=== PATIENT | female | born 1990 | race Caucasian/White ===

== ENCOUNTER → 2017-06-28 | Outpatient (CLI) | payer OTHER, MEDICAID ==
[~2017-06-28] MED LIST: BACL10TA PO; MELO-170 PO; POLY17PO6 PO
--- NOTE | 2017-06-28 10:41 | Diagnostic Imaging Report ---
INDICATION: survey. TECHNIQUE: Multiple Real-time grayscale images were obtained over the gravid uterus. COMPARISON: None. FINDINGS: There is a single live fetus in a cephalic presentation. The placenta is anterior. The amniotic fluid volume appears normal. The heart rate was recorded at 155 BPM. The survey demonstrates the kidneys and stomach to be unremarkable. The bladder was not well seen. The intra-cranial structures are unremarkable. There is a four-chamber heart. The three-vessel cord and cord insertion are unremarkable. The spine is unremarkable. Biometrical measurements are as follows: Biparietal 4.8 cm, age 20 weeks 4 days. Head circumference 18.4 cm, age 20 weeks 6 days. Abdominal circumference 15.1 cm, age 20 weeks 3 days. Femur length 3.2 cm, age 20 weeks 0 days. Sonographic estimate age: 20 weeks 4 days. Sonographic estimated date of delivery: 11/11/17. Estimated Weight: 337 gm (+/- 49 gm). LMP percentile: 73%. heart rate: 155 beats per minute. number: 1 of 1. IMPRESSION: Single live IUP of approximately 20 weeks 4 days gestational age with an estimated date of confinement sonographically of 11/11/2017. The survey is unremarkable apart from a nonvisualized bladder. Followup could be performed. Dictated by: Dictated on workstation # [id number]
== END ==
LOC: RAD 09:43
PROVIDERS: ATTEND Obstetrics & Gynecology
DX: Z36.89 Encounter for other specified antenatal screening (principal); Z3A.20 20 weeks gestation of pregnancy
CPT/HCPCS: 76805